=== PATIENT | female | born 1995 | race American Indian/Alaskan Native ===

== ENCOUNTER 2018-07-26 15:26 | Emergency (ER) | payer OTHER ==
--- NOTE | 2018-07-26 15:30 | ED PDOC ---
Arrival/HPI - General Time Seen by Provider: 07/26/18 15:29 Historian: Patient - History of Present Illness Narrative History of Present Illness (Text): 07/26/18 15:29 22 y/o female, no significant pmh, nkda, wears contact, c/o rt. eye lid swelling and pain x 2 days with no fall or trauma. Rt. eye swelling, no change in vision, no change in vision, no numbness or tingling, no night sweat, no rash, no dizziness, no painful movement of the eye, no night sweat, no other medical or psychological complaints. Past Medical History - Provider Review Nursing Documentation Reviewed: Yes Family/Social History - Physician Review Nursing Documentation Reviewed: Yes Family/Social History: Unknown Family HX Allergies/Home Meds Allergies/Adverse Reactions: Allergies No Known Allergies Allergy (Verified 07/26/18 15:37) Review of Systems - Review of Systems Constitutional: absent: Fatigue, Fevers Eyes: Other (rt. eyelid swelling and pain). absent: Vision Changes ENT: absent: Hearing Changes Respiratory: absent: SOB, Cough Cardiovascular: absent: Chest Pain Gastrointestinal: absent: Abdominal Pain, Diarrhea, Nausea, Vomiting Skin: absent: Rash, Pruritis Neurological: absent: Headache, Dizziness Psychiatric: absent: Anxiety, Depression, Suicidal Ideation Physical Exam Vital Signs Reviewed: Yes Temperature: Afebrile Blood Pressure: Normal Pulse: Regular Respiratory Rate: Normal Appearance: Positive for: Well-Appearing, Non-Toxic, Comfortable Pain Distress: Mild Mental Status: Positive for: Alert and Oriented X 3 - Systems Exam Head: Present: Atraumatic, Normocephalic Pupils: Present: PERRL Extroacular Muscles: Present: EOMI Conjunctiva: Present: Normal, Other (Eyes: bilateral vision with correction 20/20 vs. rt. vision with correction 20/50 (chronic as per patient) vs. lt. vision 20/20 (chronic as per patient), rt. eye examined with fluorsein strip show no corneal abrasion/laceration/ulcers plus no uptake of fluorsein uptake with negative chas signs including no corneal laceration, bilateral upper and lower eyelids everted with no visible foreign bodies, +rt. upper eyelid swelling but no obvious stye/hordelum noted, +rt. preseptal erythematous on the rt. upper eyelid, full range of extraocular movement without pain/gaze/entractment or any difficulty. ) Ears: Present: NORMAL TM, Normal Canal. No: Erythema Mouth: Present: Moist Mucous Membranes Neck: Present: Normal Range of Motion Respiratory/Chest: Present: Clear to Auscultation, Good Air Exchange. No: Respiratory Distress, Accessory Muscle Use Cardiovascular: Present: Regular Rate and Rhythm, Normal S1, S2. No: Murmurs Abdomen: No: Tenderness, Distention, Peritoneal Signs Back: Present: Normal Inspection Upper Extremity: Present: Normal Inspection. No: Cyanosis, Edema Lower Extremity: Present: Normal Inspection. No: Edema Neurological: Present: GCS=15, CN II-XII Intact, Speech Normal Skin: Present: Warm, Dry, Normal Color. No: Rashes Psychiatric: Present: Alert, Oriented x 3, Normal Insight, Normal Concentration Medical Decision Making ED Course and Treatment: 07/26/18 16:05 -urine hcg -augmentin/bactrim ds/motrin/ciloxin -Observe and reassess 07/26/18 16:20 -Urine hcg is negative -Pt. feels well -Discharge home with augmentin, bactrim ds, motrin, ciloxin, cold compress, no contacts until clear by opthalmologist, see your own pmd and opthalmologist within 2 dyas, return to the ER for any new or worsening signs or symptoms. - PA / [employer] / Resident Statement MD/DO has reviewed & agrees with the documentation as recorded. Disposition/Present on Arrival - Present on Arrival Any Indicators Present on Arrival: No History of DVT/PE: No History of Uncontrolled Diabetes: No Urinary Catheter: No History of Decub. Ulcer: No - Disposition Have Diagnosis and Disposition been Completed?: Yes Diagnosis: Preseptal cellulitis of right upper eyelid Disposition: HOME/ ROUTINE Disposition Time: 16:07 Patient Plan: Discharge Patient Problems: Current Active Problems Problem Status Onset Preseptal cellulitis of right upper eyelid Acute Condition: GOOD Additional Instructions: -Discharge home with augmentin, bactrim ds, motrin, ciloxin, cold compress, no contacts until clear by opthalmologist, see your own pmd and opthalmologist within 2 dyas, return to the ER for any new or worsening signs or symptoms. Prescriptions: Amoxicillin/Clavulanate [Augmentin 875 MG-125 MG] 1 tab PO BID #20 tab Ciprofloxacin 0.3% [Ciloxan 0.3% Ophth SOLN] 2 drop OD Q4 #1 bottle Ibuprofen [Motrin] 600 mg PO QID PRN #30 tab PRN Reason: Other Sulfamethoxazole/Trimethoprim [Bactrim DS 800 mg-160 mg] 1 tab PO BID #14 tab Referrals: Xiang Guidry MD [Staff Provider] - Follow up with primary [facility] at [facility] [place] [Outside] - Follow up with primary Forms: WORK NOTE
[2018-07-26 15:37] VITALS: BP 114/80; PULSE 95; RESP 18; TEMP 98.8; O2SAT 99
[2018-07-26] MEDS ORDERED: Ciprofloxacin 0.3% OPTH SOLN OD STA (15:58)
[2018-07-26] MEDS ORDERED: Amoxicillin-Clav 875-125 mg Tab PO STA (15:58)
[2018-07-26] MEDS ORDERED: Tmp-Smz 800 mg-160 mg DS Tab PO STA (16:00)
== END 2018-07-26 16:39 | disposition home or self-care (01) ==
LOC: ED 15:26
DX: H00.031 Abscess of right upper eyelid (principal)